=== PATIENT | female | born 1990 | race Caucasian/White ===

== ENCOUNTER 2016-06-17 22:56 | Inpatient (IN) | payer MEDICAID ==
[~2016-06-17] VITALS: Ht 157.5 cm; Wt 79.1 kg
[~2016-06-17 22:56] MED LIST: PREN1TAB79 PO
[2016-06-17 23:19] VITALS: Ht 157.5 cm; Wt 79.1 kg
[2016-06-17 23:20] VITALS: BP 138/96; PULSE 108; RESP 18
[2016-06-18 00:25] LABS: ALBUMIN 3.5 g/dl (3.3-4.9)
[2016-06-18 00:26] LABS: POTASSIUM 3.7 mmol/L (3.5-5.1)
[2016-06-18 00:28] LABS: ALBUMIN/GLOBULIN RATIO 0.92; BILIRUBIN,INDIRECT 0.8 mg/dl (0-1.1); BILIRUBIN,TOTAL 0.8 mg/dl (0.2-1.3); CREATININE 0.52 mg/dl (0.44-1.00); TOTAL PROTEIN 7.3 g/dl (6.1-8.1)
[2016-06-18 00:29] LABS: URIC ACID 3.8 mg/dl (3.1-7.9)
[2016-06-18 00:39] LABS: BASOPHILS % 0.4 % (0.0-2.0); EOSINOPHILS % 0.2 % (0.0-7.0); HEMATOCRIT 36.8 % (37.0-47.0); HEMOGLOBIN 12.2 g/dl (12.0-16.0); INR 0.93; LYMPHOCYTES % 17.3 % (15.0-51.0); MEAN CORPUSCULAR HEMOGLOBIN 27.9 pg (29.0-33.0); MEAN CORPUSCULAR HGB CONC 33.1 g/dl (32.0-37.0); MEAN CORPUSCULAR VOLUME 84.3 fl (82.0-101.0); MEAN PLATELET VOLUME 9.9 fl (7.4-10.4); MONOCYTE # 0.6 10^3/ul (0.3-0.9); MONOCYTES % 4.8 % (0.0-11.0); NEUTROPHIL # 9.1 10^3/ul (1.6-7.5); NEUTROPHILS % 77.3 % (39.0-77.0); PLATELET COUNT 276 10^3/UL (140-440); PROTIME 12.5 Sec (12.2-14.2); RED BLOOD COUNT 4.36 10^6/ul (4.20-5.40); RED CELL DISTRIBUTION WIDTH 13.3 % (11.5-14.5); UNCORRECTED WBC 11.8 10^3/ul (4.8-10.8); WHITE BLOOD COUNT 11.8 10^3/ul (4.8-10.8)
[2016-06-18 00:40] LABS: CONDITION 1; PARTIAL THROMBOPLASTIN TIME 26.7 Sec (25.0-35.0)
--- NOTE | 2016-06-18 00:46 | RADRPT ---
PROCEDURE: US OB biophysical profile. CLINICAL INDICATION: Contractions TECHNIQUE: Multiple sonographic images of the pelvis were obtained. The images were reviewed on a PACS workstation. COMPARISON: No pertinent prior examinations were submitted for comparison. FINDINGS: There is a single viable intrauterine gestation. Cardiac activity is present with 166 beats per min shanique. There is a vertex presentation. The placenta is anterior, grade II to III in appearance. There is a normal amount of amniotic fluid with an ROSA = 11.1 cm. Biophysical profile: movement 2/2 tone 2/2. breathing 2/2 ROSA 2/2 Total 01/23 IMPRESSION: Normal biophysical profile. RPTAT: HIKT . .Carlos Eduardo Pritchett MD, MD Date Time Electronically viewed and signed by .Carlos Eduardo Pritchett MD, on 06/18/2016 00:46 .T/
--- NOTE | 2016-06-18 00:49 | RADRPT ---
PROCEDURE: US OB ESTIMATED WEIGHT. CLINICAL INDICATION: Pain. TECHNIQUE: Multiple sonographic images of the pelvis were obtained. The images were reviewed on a PACS workstation. COMPARISON: No pertinent prior examinations were submitted for comparison. FINDINGS: There is a single live intrauterine gestation. Cardiac activity is present with 161 beats per minut e. There is a vertex presentation. Measurements were made in order to determine age. The results are as follows: BPD =9.3 cm = 38 weeks 0 days HC =33.8 cm = 38 weeks 5 days AC =34.2 cm = 38 weeks 1 day FL =7.5 cm = 38 weeks 2 days Estimated gestational age of approximately 38 weeks 2 days. The estimated date of delivery is 06/30/2016. The EFW = 3431 g . This examination was not performed for anatomy. The placenta is anterior, grade II to III appearance. There is no evidence for an abruption or place nta previa. IMPRESSION: EFW = 3431 g which is in the 55th percentile. RPTAT: HIKT .Carlos Eduardo Pritchett MD, MD Date Time Electronically viewed and signed by .Carlos Eduardo Pritchett MD, on 06/18/2016 00:48 .T/
[2016-06-18] MEDS ORDERED: LACTATED RINGER'S 1,000 ML IV SCH (01:16)
[2016-06-18] MEDS ORDERED: OXYTOCIN 30 UNITS/LR 500 ML IV PRN ×2 (01:30→12:30)
[2016-06-18] MEDS ORDERED: AMPICILLIN 2 GM/NS (PMX) 100 ML IV ONE (01:30)
[2016-06-18] MEDS ORDERED: CARBOPROST 250 MCG INJ IM PRN ×2 (01:30→12:30)
[2016-06-18] MEDS ORDERED: BUTORPHANOL 2 MG INJ IV PRN (01:30)
[2016-06-18] MEDS ORDERED: METHYLERGONOVINE 0.2 MG INJ IM PRN ×2 (01:30→12:30)
[2016-06-18] MEDS ORDERED: IBUPROFEN 600 MG TAB PO PRN (01:30)
[2016-06-18] MEDS ORDERED: OXYTOCIN 30 UNITS/LR 500 ML IV SCH ×2 (01:30)
[2016-06-18] MEDS ORDERED: LACTATED RINGER'S 1,000 ML IV PRN (01:30)
[2016-06-18] MEDS ORDERED: MISOPROSTOL 200 MCG TAB PR PRN ×2 (01:30→12:30)
[2016-06-18] MEDS ORDERED: LIDOCAINE 1% (MPF) 30 ML INJ INJ PRN (01:30)
[2016-06-18] MEDS ORDERED: FENTAnyl 2MCG/ML-ROPIV 0.2% 100 ML ONE (04:15)
[2016-06-18] MEDS ORDERED: AMPICILLIN 1 GM/NS (PMX) 50 ML IV SCH (05:30)
[2016-06-18 06:42] LABS: ADD UMIC YES; URINE BILIRUBIN (Dip) NEGATIVE (NEGATIVE); URINE BLOOD (Dip) 3+ (NEGATIVE); URINE COLOR YELLOW (YELLOW); URINE GLUCOSE (Dip) NEGATIVE (NEGATIVE); URINE KETONES (Dip) NEGATIVE (NEGATIVE); URINE LEUKOCYTE ESTERASE (Dip) TRACE (NEGATIVE); URINE NITRITE (Dip) NEGATIVE (NEGATIVE); URINE TOTAL PROTEIN (Dip) TRACE (NEGATIVE); URINE UROBILINOGEN (Dip) 0.2 E.U./dL (0.1-1.0)
[2016-06-18 06:52] LABS: BACTERIA,URINE FEW; SQUAMOUS EPITHELIAL CELL,UR FEW
[2016-06-18 07:28] LABS: BARBITURATES NEGATIVE (NEGATIVE); BENZODIAZEPINES NEGATIVE (NEGATIVE); CANNABINOIDS NEGATIVE (NEGATIVE); COCAINE NEGATIVE (NEGATIVE); OPIATES NEGATIVE (NEGATIVE)
[2016-06-18 11:35] VITALS: BP 125/71; PULSE 81; RESP 18
[2016-06-18] MEDS: LACTATED RINGER'S 1,000 ML IV* SCH ×2 (12:13→20:13)
[2016-06-18] MEDS ORDERED: LANOLIN 7 GM TUBE TOP PRN (12:30)
[2016-06-18] MEDS ORDERED: WITCH HAZEL/GLYCERIN PAD PR PRN (12:30)
[2016-06-18] MEDS ORDERED: BENZOCAINE 20% 56 ML SPRAY TOP PRN (12:30)
[2016-06-18] MEDS ORDERED: OXYCODONE/ASPIRIN (4.88/325) TAB PO PRN (12:30)
[2016-06-18] MEDS ORDERED: SENNA/DOCUSATE NA (8.6MG/50MG) TAB PO PRN (12:30)
[2016-06-18] MEDS ORDERED: ZOLPIDEM 5 MG TAB PO PRN (12:30)
[2016-06-18] MEDS: IBUPROFEN 600 MG TAB PO SCH ×3 (13:02→23:50)
--- NOTE | 2016-06-18 13:35 | LDN ---
Date/Time of Note Date/Time of Note DATE: 06/18/16 TIME: 13:35 Delivery Summary Placenta Delivered: Spontaneously Meconium: Light Perineum intact?: Yes Anesthesia type: Epidural Estimated blood loss: 200 Sponge & Needle done & correct: Yes All needle counts correct: Yes Any foreign bodies felt in the: No Problems: Delivery Information Suctioning Nose & mouth suctioned at guerrero: Yes Delee suction performed: Yes Umbilical Cord Umbilical cord with: 3 Vessels Cord presentations: no nuchal cord Cord Blood was obtained: Yes Mother & Baby Disposition Disposition Mom & Baby to Maternity; Good: Yes Baby to NICU: No HERMINIA LOZOYA M.D. Jun 18, 2016 13:35
[2016-06-18] MEDS ORDERED: BENZOCAINE 20% 56 ML SPRAY TOP ONE (13:48)
[2016-06-18] MEDS ORDERED: WITCH HAZEL/GLYCERIN PAD ONE (13:48)
[2016-06-18 16:22] VITALS: BP 110/59; PULSE 85; RESP 16
[2016-06-18 20:00] VITALS: BP 97/60; PULSE 86; RESP 18
[2016-06-18] MEDS: SENNA/DOCUSATE NA (8.6MG/50MG) TAB PO SCH (21:02)
[2016-06-18] MEDS: MAGNESIUM HYDROXIDE 30ML CUP PO SCH (21:02)
[2016-06-19] VITALS: BP 96/62; PULSE 78; RESP 18
[2016-06-19 04:00] VITALS: BP 98/52; PULSE 78; RESP 18
[2016-06-19] MEDS: LACTATED RINGER'S 1,000 ML IV* SCH (04:13)
[2016-06-19] MEDS: IBUPROFEN 600 MG TAB PO SCH ×4 (05:32→23:25)
[2016-06-19 06:27] LABS: BASOPHILS % 0.4 % (0.0-2.0); EOSINOPHILS # 0.1 10^3/ul (0.0-0.5); HEMATOCRIT 28.2 % (37.0-47.0); HEMOGLOBIN 9.6 g/dl (12.0-16.0); LYMPHOCYTES # 2.6 10^3/ul (0.8-2.9); LYMPHOCYTES % 26.7 % (15.0-51.0); MEAN CORPUSCULAR HEMOGLOBIN 28.9 pg (29.0-33.0); MEAN CORPUSCULAR HGB CONC 34.1 g/dl (32.0-37.0); MEAN CORPUSCULAR VOLUME 84.8 fl (82.0-101.0); MEAN PLATELET VOLUME 9.4 fl (7.4-10.4); MONOCYTE # 0.5 10^3/ul (0.3-0.9); MONOCYTES % 5.2 % (0.0-11.0); NEUTROPHIL # 6.5 10^3/ul (1.6-7.5); NEUTROPHILS % 66.7 % (39.0-77.0); PLATELET COUNT 225 10^3/UL (140-440); RED BLOOD COUNT 3.32 10^6/ul (4.20-5.40); RED CELL DISTRIBUTION WIDTH 13.6 % (11.5-14.5); UNCORRECTED WBC 9.8 10^3/ul (4.8-10.8); WHITE BLOOD COUNT 9.8 10^3/ul (4.8-10.8)
[2016-06-19 06:34] LABS: CONDITION 1
[2016-06-19 07:50] VITALS: BP 99/50; PULSE 83; RESP 18
[2016-06-19] MEDS: SENNA/DOCUSATE NA (8.6MG/50MG) TAB PO SCH ×2 (09:13→21:09)
[2016-06-19] MEDS: MAGNESIUM HYDROXIDE 30ML CUP PO SCH ×2 (09:14→21:09)
[2016-06-19] MEDS ORDERED: INFLUENZA VIRUS VACCINE 0.5 ML (DISPENSING) IM* ONE (10:00)
[2016-06-19 16:00] VITALS: BP 105/51; PULSE 82; RESP 18
[2016-06-19 20:00] VITALS: BP 114/62; PULSE 70; RESP 20
[2016-06-20 04:38] VITALS: BP 119/68; PULSE 70; RESP 20
[2016-06-20] MEDS: IBUPROFEN 600 MG TAB PO SCH ×3 (05:30→18:10)
[2016-06-20 08:40] VITALS: BP 100/57; RESP 17
[2016-06-20] MEDS: SENNA/DOCUSATE NA (8.6MG/50MG) TAB PO SCH (08:56)
[2016-06-20] MEDS: MAGNESIUM HYDROXIDE 30ML CUP PO SCH (08:56)
[2016-06-20] MEDS ORDERED: INFLUENZA VIRUS VACCINE 0.5 ML (DISPENSING) IM* ONE (09:00)
[2016-06-20] MEDS ORDERED: DIPHTH/TET/ACEL PERTUSS (ADULT) 0.5 ML VIAL IM* ONE (09:00)
--- NOTE | 2016-06-20 15:36 | DELSUM ---
Delivery Summary A-C Datetime Report Generated by CPN: 06/20/2016 15:36 DELIVERY PERSONNEL Library Customer Service Clerk: Hanna Alvaresa MATERNAL INFORMATION Delivery Anesthesia: Epidural Medications in Delivery: 30 UNITS PITOCIN Estimated Blood Loss (ml): 200 Placenta Cultured: No Maternal Complications: Other Other Maternal Complications: + TOX SCREEN (AMPHETAMINES) ; NO RECORDS AVILABLE; STATES CH OLESTASIS RN Comments: PARTIAL PLACENTA ABRUPTION; PLACENTA TO PATHOLOGY; CORD TISSUE COLLECTED BABY VOID X1 AT DELIVERY LABOR SUMMARY EDC: 06/27/2016 00:00 No. Babies in Womb: 1 Attempted: No Labor Anesthesia: Epidural LABOR INFORMATION Reason for Induction: Not Applicable Onset of Labor: 06/17/2016 23:07 Complete Dilatation: 06/18/2016 08:22 Oxytocin: N/A Group B Beta Strep: Not Done Antibiotics # of Doses: 2 Antibiotics Time of Last Dose: 0631 Steroids Given: None Reason Steroids Not Administered: Not Applicable MEMBRANES Membranes Rupture Method: Artificial Membranes Rupture Method: Spontaneous Rupture of Membranes: 06/18/2016 08:46 Length of Rupture (hr): -0.03 Amniotic Fluid Color: Light Meconium Amniotic Fluid Color: Light Meconium Amniotic Fluid Amount: Moderate Amniotic Fluid Amount: Moderate Amniotic Fluid Odor: None Amniotic Fluid Odor: None STAGES OF LABOR Stage 1 hr: 9 Stage 1 min: 15 Stage 2 hr: 0 Stage 2 min: 22 Stage 3 hr: 0 Stage 3 min: 2 Total Time in Labor hr: 9 Total Time in Labor min: 39 VAGINAL DELIVERY Episiotomy: None Laceration Type: None Laceration Repair: Not Applicable Initial Vag Sponge Count: 20 Final Vag Sponge Count: 20 Initial Vag Sharps Count: 1 Final Vag Sharps Count: 1 Sponge Count Correct: Yes; Vaginal Sweep Performed Sharps Count Correct: Yes BABY A INFORMATION Delivery Date/Time: 06/18/2016 08:44 Method of Delivery: Vaginal Method of Delivery: Vaginal Born in Route : No : N/A Forceps: N/A Vacuum Extraction: N/A Shoulder Dystocia : No SHOULDER DYSTOCIA BABY A Infant Delivery Date/Time: 06/18/2016 08:44 PRESENTATION/POSITION BABY A Presentation: Cephalic Presentation: Cephalic Presentation: Unable to Assess Cephalic Presentation: Vertex Breech Presentation: N/A PLACENTA INFORMATION BABY A Placenta Delivery Time : 06/18/2016 08:46 Placenta Method of Delivery: Spontaneous Placenta Method of Delivery: Spontaneous Placenta Status: Delivered SCORES BABY A Heart Rate 1 min: >100 bpm Resp Effort 1 min: Good Cry Reflex Irritability 1 min: Cough/Sneeze/Pulls Away Muscle Tone 1 min: Active Motion Color 1 min: Body Rembrandt, Extremit Blue Resuscitation Effort 1 min: Tactile Stimulation SCORE 1 MIN: 9 Heart Rate 5 min: >100 bpm Resp Effort 5 min: Good Cry Reflex Irritability 5 min: Cough/Sneeze/Pulls Away Muscle Tone 5 min: Active Motion Color 5 min: Body Rembrandt, Extremit Blue Resuscitation Effort 5 min: Tactile Stimulation SCORE 5 MIN: 9 INFORMATION BABY A Gestational Age at Delivery: 38.5 Gestational Status: Early Term- 37- 38.6 Weeks Outcome : Liveborn Infant Condition : Stable Sex: Male Sex: Male IDENTIFICATION/MEDS BABY A ID Band Number: [id number] ID Band Location: Right Leg; Left Arm Sensor Applied: Yes Sensor Number: [id number] Sensor Location : Cord Clamp Vitamin K Given : Not Given Erythromycin Given: Not Given WEIGHT/LENGTH BABY A Infant Birthweight (gm): 3210 Weight (lb): 7 Infant Weight (oz): 1 Infant Length (in): 19.50 Length (cm): 49.53 CORD INFORMATION BABY A No. Cord Vessels: 3 Nuchal Cord : N/A Cord Blood Taken: Yes Suction: Mouth; Nose ASSESSMENT BABY A Infant Complications: Multiple Variable Decels; Meconium Physical Findings at Delivery: Within Normal Limits Respirations: Appears Normal Cherry Pitter/ALS Called : No Infant Care By: Ina SCHERER RN/ RT SAVANNAH Transferred To: Remains with Mother
--- NOTE | 2016-06-20 15:36 | OPRPT ---
Intraop Record Datetime Report Generated by CPN: 06/20/2016 15:36 Datetime: 06/17/2016 23:23 Drug Allergies/Reactions: No Known Allergy (06/17/2016) Datetime: 04/10/2016 04:28 Drug Allergies/Reactions: No Known Allergy (04/10/2016) Datetime: 04/10/2016 04:20 Food Allergies/Reactions: DENIES Latex Allergies/Reactions: No Latex Allergies Datetime: 04/10/2016 04:13 Drug Allergies/Reactions: No Known Allergy (11/01/2011)
--- NOTE | 2016-06-20 15:51 | PN ---
Date/Time of Note Date/Time of Note DATE: 06/20/16 TIME: 15:50 OB Subjective Subjective Subjective PPD#2 is stable afebrile tolerates diet No VB +BM +voids no sign of depression VS stable Gen NAD Abd soft NT ND Genitalai no blood at peritonium --->discharge plan HERMINIA LOZOYA M.D. Jun 20, 2016 15:51
== END 2016-06-20 19:15 | disposition home or self-care (01) | DRG 775 ==
LOC: OBT 22:56 → L-D 22:57 → OBT 06-18 01:24 → L-D 06-18 01:25 → PP1 06-18 12:15
PROVIDERS: ADMIT Obstetrics & Gynecology; ATTEND Obstetrics & Gynecology
PROC: 10E0XZZ Delivery of Products of Conception, External Approach (ICD-10-PCS; principal; 2016-06-18)
PROC: 3E00X4Z Introduction of Serum, Toxoid and Vaccine into Skin and Mucous Membranes, External Approach (ICD-10-PCS; 2016-06-19)
DX: O80 Encounter for full-term uncomplicated delivery (principal); Z23 Encounter for immunization; Z3A.38 38 weeks gestation of pregnancy; Z37.0 Single live birth
CPT/HCPCS: 36415; 62319; 76815; 76818; 80053; 81001; 81003; 84112; 84560; 85025; 85384; 85610; 85730; 86592; 86703; 86762; 86900; 86901; 87340; 88307; 90686; 90715; 99464; G0463; G0479; J0290; J2210; J2590; J3010; J7120